=== PATIENT | male | born 1965 | race Caucasian/White ===

== ENCOUNTER 2023-05-11 17:38 | Emergency (ER) | payer SELFPAY ==
[2023-05-11 18:57] LABS: Hematocrit 39.8 % (39.6-49.0); Lymphocytes % 18.6 % (15.3-44.8); MCV 91.1 fL (80-100); MPV 6.6 fL (7.6-11.3); Protime INR 1.07; RBC Red Blood Cell Count 4.37 M/uL (4.33-5.43)
--- NOTE | 2023-05-11 19:16 | RAD REPORT ---
EXAM DESCRIPTION: RAD - Chest Single View - 05/11/2023 6:47 pm CLINICAL HISTORY: SWELLING Chest pain. COMPARISON: No comparisons FINDINGS: Portable technique limits examination quality. Mild interstitial pulmonary edema. The heart is mildly enlarged in size. No displaced fractures. IMPRESSION: Mild CHF.
[2023-05-11 19:29] LABS: Magnesium 2.4 mg/dL (1.6-2.4); Potassium 3.6 mEq/L (3.5-5.1); Troponin High Sensitivity 55.1 pg/mL (<58.9)
--- NOTE | 2023-05-11 21:03 | RAD REPORT ---
EXAM DESCRIPTION: US - Extrem Venous W Compress Varghese - 05/11/2023 8:54 pm CLINICAL HISTORY: SWELLING Bilateral leg edema and swelling. COMPARISON: No comparisons TECHNIQUE: Real-time sonographic interrogation of the left and right lower extremity deep venous sys tems was performed. FINDINGS: Normal compressibility, flow augmentation, phasic flow and spontaneous flow is identified in both the left and right lower extremity deep venous systems. IMPRESSION: No sonographic evidence of left or right lower extremity deep venous thrombosis.
--- NOTE | 2023-05-11 21:04 | RAD REPORT ---
EXAM DESCRIPTION: US - Lower Extremity Arterial Bilat - 05/11/2023 8:54 pm CLINICAL HISTORY: SWELLING COMPARISON: No comparisons TECHNIQUE: Bilateral lower extremity arterial Doppler examination was performed with cary cortez FINDINGS: Triphasic waveforms are seen throughout both lower extremity arterial systems to the level of the pop liteal arteries. Below the level of the popliteal arteries, monophasic waveforms seen in both posterior tibial arterie s and dorsalis pedis arteries. IMPRESSION: Mild bilateral peripheral vascular disease below the level of the popliteal artery.
--- NOTE | 2023-05-11 21:41 | EDPHYS ---
Physician Documentation [facility] Name: Roger Gautam Age: 57 yrs Sex: Male : 1965 Arrival Date: 05/11/2023 Time: 17:38 Bed 13 Private MD: ED Physician Eren Guido HPI: 05/11 18:10 This 57 yrs old Male presents to ER via Ambulatory with complaints of Leg Swelling. cp 18:10 The patient presents with swelling, tenderness. The complaints affect the left lower cp leg and left foot and right lower leg and right foot. Context: resulted from an unknown cause, the patient can fully bear weight, the patient is able to ambulate, without difficulty. Onset: The symptoms/episode began/occurred gradually, 2 week(s) ago. 18:10 Associated signs and symptoms: Pertinent negatives fever, rash, warmth, shortness of cp breath, chest pain. 18:10 Treatment prior to arrival includes: no previous treatment. Severity of symptoms: in cp the emergency department the symptoms are unchanged, despite home interventions. Historical: - Allergies: 17:53 Pollen; ll1 - PMHx: 17:53 None; ll1 - PSHx: 17:53 None; ll1 - Immunization history:: Client reports having NOT received the Covid vaccine. - Social history:: Smoking status: Patient reports the use of cigarette tobacco products, smokes one pack cigarettes per day. ROS: 18:15 Constitutional: Negative for body aches, chills, fever, poor PO intake. cp 18:15 Eyes: Negative for injury, pain, redness, and discharge. cp 18:15 ENT: Negative for drainage from ear(s), ear pain, sore throat, difficulty swallowing, difficulty handling secretions. 18:15 Cardiovascular: Positive for edema, Negative for chest pain, palpitations. 18:15 Respiratory: Negative for cough, shortness of breath, wheezing. 18:15 Abdomen/GI: Negative for abdominal pain, nausea, vomiting, and diarrhea. 18:15 Back: Negative for pain at rest, pain with movement. 18:15 Skin: Negative for rash. 18:15 Neuro: Negative for altered mental status, dizziness, headache, weakness. 18:15 All other systems are negative. Exam: 18:20 Constitutional: The patient appears in no acute distress, alert, awake, comfortable, cp non-diaphoretic, non-toxic, well developed, well nourished. 18:20 Head/Face: Normocephalic, atraumatic. cp 18:20 Eyes: Periorbital structures: appear normal, Conjunctiva: normal, no exudate, no injection, Sclera: no appreciated abnormality, Lids and lashes: appear normal, bilaterally. 18:20 ENT: External ear(s): are unremarkable, Nose: is normal, Mouth: Lips: moist, Oral mucosa: pink and intact, moist, Posterior pharynx: is normal, airway is patent, no erythema, no exudate. 18:20 Neck: ROM/movement: is normal, is supple, without pain, no range of motions limitations. 18:20 Chest/axilla: Inspection: normal. 18:20 Cardiovascular: Rate: normal, Rhythm: regular, Edema: ankle edema, that is moderate, JVD: is not appreciated. 18:20 Respiratory: the patient does not display signs of respiratory distress, Respirations: normal, no use of accessory muscles, no retractions, labored breathing, is not present, Breath sounds: are clear throughout, no decreased breath sounds, no stridor, no wheezing. 18:20 Abdomen/GI: Exam negative for discomfort, distension, guarding, Inspection: abdomen appears normal. 18:20 Back: pain, is absent, ROM is normal. 18:20 Skin: cellulitis, is not appreciated, no rash present. 18:20 Neuro: Orientation: to person, place \T\ time. Mentation: is normal, Motor: moves all fours, strength is normal, Sensation: is normal, Gait: is steady. 18:38 ECG was reviewed by the Attending Physician. cp Vital Signs: 17:54 BP 144 / 98; Pulse 92; Resp 17; Temp 98.2; Pulse Ox 99% ; Weight 95.25 kg; Height 6 ft. ll1 3 in. ; Pain 4/10; 20:15 BP 128 / 93; Pulse 80; Resp 19; Pulse Ox 98% on R/A; jb4 21:45 BP 133 / 81; Pulse 78; Resp 16; Pulse Ox 99% on R/A; jb4 17:54 Body Mass Index 26.25 (95.25 kg, 190.5 cm) ll1 17:54 Pain Scale: Adult ll1 MDM: 17:58 Patient medically screened. 19:00 Differential diagnosis: cellulitis, DVT, arterial occlusion, CHF. cp 21:40 Data reviewed: vital signs, nurses notes, lab test result(s), EKG, radiologic studies, cp plain films, ultrasound, and as a result, I will discharge patient. 21:40 Consideration of Admission/Observation Escalation of care including cp admission/observation considered. Independent interpretation of the following test(s) in the Emergency Department X-Ray: My interpretation is chest image negative for infiltrates. Counseling: I had a detailed discussion with the patient and/or guardian regarding: the historical points, exam findings, and any diagnostic results supporting the discharge/admit diagnosis, lab results, radiology results, the need for outpatient follow up, a income tax advisor, a family practitioner, to return to the emergency department if symptoms worsen or persist or if there are any questions or concerns that arise at home. 05/11 18:00 Order name: Basic Metabolic Panel; Complete Time: 19:39 05/11 21:20 Interpretation: GLUC 129; Reviewed. 05/11 18:00 Order name: CBC with Diff; Complete Time: 19:39 06/ 19:39 Interpretation: Normal except: HGB 13.0; PLT 551; MPV 6.6. 05/11 18:00 Order name: Magnesium; Complete Time: 19:39 05/11 18:00 Order name: NT PRO-BNP; Complete Time: 19:39 05/11 21:33 Interpretation: Abnormal: NT PRO-BNP 162. 05/11 18:00 Order name: PT-INR; Complete Time: 19:39 05/11 18:00 Order name: Troponin HS; Complete Time: 19:39 05/11 18:00 Order name: XRAY Chest (1 view); Complete Time: 19:39 06/15 19:39 Interpretation: Report review. 05/11 18:00 Order name: US Extremity Venous W Compression Varghese; Complete Time: 21:20 05/11 18:00 Order name: US Lower Extremity Arterial Bilateral; Complete Time: 21:20 05/11 18:00 Order name: EKG; Complete Time: 18:01 05/11 18:00 Order name: Cardiac monitoring; Complete Time: 18:38 05/11 18:00 Order name: EKG - Nurse/Tech; Complete Time: 18:38 cp 05/11 18:00 Order name: IV Saline Lock; Complete Time: 18:38 cp 05/11 18:00 Order name: Labs collected and sent; Complete Time: 18:38 cp 05/11 18:00 Order name: O2 Per Protocol; Complete Time: 18:38 cp 05/11 18:00 Order name: O2 Sat Monitoring; Complete Time: 18:38 cp EC:38 Rate is 91 beats/min. Rhythm is regular. [place] interval is normal. QRS interval is normal. cp QT interval is normal. T waves are Inverted in lead aVR. Interpreted by me. Reviewed by me. Administered Medications: No medications were administered Disposition Summary: 05/11/23 21:40 Discharge Ordered Location: Home cp Problem: new cp Symptoms: have improved cp Condition: Stable cp Diagnosis - Edema, unspecified cp Followup: cp - With: José Hammer MD - When: 1 week - Reason: Recheck today's complaints Discharge Instructions: - Discharge Summary Sheet cp - Aspirin and Your Heart cp - Peripheral Edema cp - How to Use Compression Stockings cp Forms: - Medication Reconciliation Form cp - Thank You Letter cp - Antibiotic Education cp - Prescription Opioid Use cp Prescriptions: - Lasix 20 mg Oral Tablet - take 1 tablet by ORAL route once daily for 5 days; 5 tablet; Refills: 0, cp Product Selection Permitted Signatures: Dispatcher [employer] EDMS Isidoro Rodriguez PA PA cp Ace Bonilla RN RN ll1 Corrections: (The following items were deleted from the chart) 05/12 21:32 05/11 18:10 Onset: The symptoms/episode began/occurred gradually, cp cp 05/12 21:58 05/11 18:10 Associated signs and symptoms: Pertinent negatives fever, rash, warmth, cp shortness of breath, cp
--- NOTE | 2023-05-11 21:41 | ER ---
Nurse's Notes [facility] Name: Roger Gautam Age: 57 yrs Sex: Male : 1965 Arrival Date: 05/11/2023 Time: 17:38 Bed 13 Private MD: Diagnosis: Edema, unspecified Presentation: 05/11 17:54 Chief complaint: Patient states: B leg swelling for 2 weeks. Had some nausea, fever, ll1 and generalized malaise last week. Coronavirus screen: Vaccine status: Patient reports being unvaccinated. Client denies travel out of the [place] in the last 14 days. At this time, the client does not indicate any symptoms associated with coronavirus-19. Ebola Screen: Patient denies travel to an Ebola-affected area in the 21 days before illness onset. Initial Sepsis Screen: Does the patient meet any 2 criteria? No. Patient's initial sepsis screen is negative. Does the patient have a suspected source of infection? No. Patient's initial sepsis screen is negative. Risk Assessment: Do you want to hurt yourself or someone else? Patient reports no desire to harm self or others. Onset of symptoms was April 27, 2023. 17:54 Method Of Arrival: Ambulatory ll1 17:54 Acuity: ZACH 3 ll1 Historical: - Allergies: 17:53 Pollen; ll1 - PMHx: 17:53 None; ll1 - PSHx: 17:53 None; ll1 - Immunization history:: Client reports having NOT received the Covid vaccine. - Social history:: Smoking status: Patient reports the use of cigarette tobacco products, smokes one pack cigarettes per day. Screenin:44 [facility] ED Fall Risk Assessment (Adult) History of falling in the last 3 months, kc6 including since admission No falls in past 3 months (0 pts) Confusion or Disorientation No (0 pts) Intoxicated or Sedated No (0 pts) Impaired Gait No (0 pts) Mobility Assist Device Used No (0 pt) Altered Elimination No (0 pt) Score/Fall Risk Level 0 - 2 = Low Risk Oriented to surroundings, Maintained a safe environment, Educated pt \T\ family on fall prevention, incl call for assistance when getting out of bed, Assessed \T\ reinforced patient's understanding of fall precautions, Hourly rounding (assess needs \T\ fall precautionary measures) done. Abuse screen: Denies threats or abuse. Denies injuries from another. Nutritional screening: No deficits noted. Tuberculosis screening: No symptoms or risk factors identified. Assessment: 18:43 General: Appears in no apparent distress. comfortable, Behavior is calm, cooperative, kc6 appropriate for age. Pain: Denies pain. Neuro: Santiago Agitation-Sedation Scale (RASS): 0 - Alert and Calm Level of Consciousness is awake, alert, obeys commands, Oriented to person, place, time, situation, Appropriate for age. Cardiovascular: Edema is 3+ to left midcalf, left ankle, right midcalf and right ankle pitting to left midcalf, left ankle, right midcalf and right ankle. Respiratory: Airway is patent Trachea midline Respiratory effort is even, unlabored, Respiratory pattern is regular, symmetrical. GI: No signs and/or symptoms were reported involving the gastrointestinal system. : No signs and/or symptoms were reported regarding the genitourinary system. EENT: No signs and/or symptoms were reported regarding the EENT system. Derm: No signs and/or symptoms reported regarding the dermatologic system. Skin is intact, Skin is pink, warm \T\ dry. Musculoskeletal: No signs and/or symptoms reported regarding the musculoskeletal system. Circulation, motion, and sensation intact. Capillary refill < 3 seconds, Range of motion: intact in all extremities. 19:15 Reassessment: Patient appears in no apparent distress at this time. Patient and/or jb4 family updated on plan of care and expected duration. Pain level reassessed. Patient is alert, oriented x 3, equal unlabored respirations, skin warm/dry/pink. 20:28 Reassessment: Patient appears in no apparent distress at this time. Patient and/or jb4 family updated on plan of care and expected duration. Pain level reassessed. Patient is alert, oriented x 3, equal unlabored respirations, skin warm/dry/pink. 21:45 Reassessment: Patient appears in no apparent distress at this time. Patient and/or jb4 family updated on plan of care and expected duration. Pain level reassessed. Patient is alert, oriented x 3, equal unlabored respirations, skin warm/dry/pink. Vital Signs: 17:54 BP 144 / 98; Pulse 92; Resp 17; Temp 98.2; Pulse Ox 99% ; Weight 95.25 kg; Height 6 ft. ll1 3 in. ; Pain 4/10; 20:15 BP 128 / 93; Pulse 80; Resp 19; Pulse Ox 98% on R/A; jb4 21:45 BP 133 / 81; Pulse 78; Resp 16; Pulse Ox 99% on R/A; jb4 17:54 Body Mass Index 26.25 (95.25 kg, 190.5 cm) ll1 17:54 Pain Scale: Adult [facility] ED Course: 17:43 Patient arrived in ED. im 17:48 Isidoro Rodriguez PA is PHCP. cp 17:48 Eren Guido MD is Attending Physician. cp 17:50 Arm band placed on. ll1 17:55 Triage completed. ll1 18:32 Simi Castaneda, JONA is Primary Nurse. kc6 18:32 Patient placed in an exam room, on a stretcher. ll1 18:44 Patient has correct armband on for positive identification. Bed in low position. Call kc6 light in reach. Side rails up X 1. 18:44 Initial lab(s) drawn, by me, sent to lab. EKG done, by ED staff. Inserted saline lock: cm10 20 gauge in right antecubital area, using aseptic technique. Blood collected. 18:48 XRAY Chest (1 view) In Process Unspecified. EDMS 20:56 US Extremity Venous W Compression Varghese In Process Unspecified. EDMS 20:56 US Lower Extremity Arterial Bilateral In Process Unspecified. EDMS 21:39 José Hammer MD is Referral Physician. cp 21:50 No provider procedures requiring assistance completed. IV discontinued, intact, jb4 bleeding controlled, No redness/swelling at site. Pressure dressing applied. Administered Medications: No medications were administered Outcome: 21:40 Discharge ordered by . cp 21:50 Discharged to home ambulatory, with family. jb4 21:50 Condition: stable 21:50 Discharge instructions given to patient, Instructed on discharge instructions, follow up and referral plans. medication usage, Demonstrated understanding of instructions, follow-up care, medications, Prescriptions given X 1. 22:09 Patient left the ED. jb4 Signatures: Dispatcher [employer] EDPA Isidoro Rodriguez PA PA cp Rigoberto Avery RN RN jb4 Ace Bonilla RN RN 1 Simi Castaneda RN RN kc6 Anabelle Carreon Clarissa, RN RN cm10
[2023-05-11 22:51] VITALS: TEMP 98.2
[2023-05-11 22:55] VITALS: BP 133/81; O2SAT 99
--- NOTE | 2023-05-12 14:17 | EKG ---
Test Date: 2023-05-11 Test Time: 18:33:29 Embosser Apprentice: HAZEL MEASUREMENT RESULTS: Intervals: Rate: 91 CT: 150 QRSD: 74 QT: 366 QTc: 450 [place]: P: 63 CT: 150 QRS: 49 T: 55 INTERPRETIVE STATEMENTS: Normal sinus rhythm Normal ECG No previous ECG available for comparison Electronically Signed On 05-12-23 14:15:58 CDT by José Hammer
== END 2023-05-11 22:09 | disposition home or self-care (01) ==
LOC: ER 17:38
DX: R60.9 Edema, unspecified (principal)
CPT/HCPCS: 36415; 71045; 80048; 83735; 83880; 84484; 85025; 85610; 93005; 93925; 93970; 99284